=== PATIENT | female | born 1945 | race Caucasian/White ===

== ENCOUNTER 2025-04-28 13:50 | Emergency (ER) | payer OTHER ==
[~2025-04-28] VITALS: Ht 154.9 cm; Wt 77.9 kg
--- NOTE | 2025-04-28 14:26 | DVH ---
CHEST RADIOGRAPH Indication: palpitations Technique: Single frontal view of the chest was obtained Comparison: None FINDINGS: Lines and Tubes: None Lungs: No focal consolidation. Pleura: No effusion. No pneumothorax. Cardiomediastinal contours: Cardiomegaly Bones: No acute osseous abnormality. IMPRESSION: 1. Cardiomegaly 2. No infiltrates or effusions.
--- NOTE | 2025-04-28 14:35 | ED.PDOC ---
HPI Comments HPI: Past Medical history: Tremors, High Lipids Past Surgical history: Ectopic , Tonsillectomy Medications: Choline, Vitamine D, Atorvastatin, Primidone, Magnesium Social History: Denies smoking, ETOH, and drug use. Allergies: NKDA HPI: Poor Historian. 79-year-old female presents to emergency department for evaluation of 2-1/2 hours episode of palpitations that happened this morning when she woke up. Patient states having some associated mild chest discomfort and bilateral upper extremity numbness and tingling. The palpitation she has a resolved but the tingling in bilateral arms still present. REVIEW OF SYSTEMS: CONSTITUTIONAL: Denies acute: fever, diaphoresis, chills, HEAD: Denies acute: headache, photophobia Eyes: Denies acute: Double vision, vision loss, eye pain, eye discharge. EARS: Denies acute: tinnitus, hearing loss, ear discharge, ear pain, THROAT: Denies acute: sore throat, swelling, difficulty swallowing , pain with swa llowing, change in voice. NECK: Denies acute: neck pain, neck swelling, stiff neck. HEART: Denies acute : LUNGS: Denies acute: SOB, wheezing, cough, hemoptysis ABDOMEN: Denies acute: abdominal pain, Nausea, Vomiting, diarrhea, melena , hematemesis, hematochezia SKIN: Denies acute: rash, redness, lesions, itchiness. EXTREMITIES: Denies acute: calf pain, weakness, denies pain in extremity. Denies acute: Low back pain. Neuro: Denies acute: focal neurological deficit, motor or sensory focal neurological deficit, tremors, seizure like activity, confusion, dizziness, change in mental status, loss of bowel or bladder function, cauda equina like symptoms. : Denies acute: dysuria, hematuria, flank pain, increase in urinary frequency. PSYCH: Denies acute: hallucination, suicidal ideation, homicidal ideation. FEMALE: Denies acute: abnormal vaginal bleeding, foul odor, unusual discharge. PHYSICAL EXAM: General: ----no ----acute distress, awake and alert. Head: normocephalic, atraumatic. Neck: supple, trachea is midline, no swelling. Throat: Normal phonation. Eyes:, no erythema, no purulent discharge, no proptosis, no icterus. Heart: regular rate, regular rhythm, no significant murmur appreciated. Lungs: no apparent respiratory distress, Able to speak in full sentences. No wheezing, no rhonchi, no crackles. No stridors Clear to auscultation bilaterally. Abdomen: non tender to palpation, non distended, soft, no guarding, no rebound, + bowel sounds. Neuro: Awake, Alert, oriented to name, self, situation, follows commands. History of resting tremors GCS=15. Speech is normal. Skin: no petechia, no purpura, no cyanosis, non-pale, not jaundice. Lower extremities: --no - Pitting edema no deformity, no focal swelling, no calf TTP. Makes eye contact. moves all four extremities. Face: no apparent facial droop. Ambulating in the ED independently. ED COURSE: DISCLAIMER: This medical document was created using an electronic medical record system with voice recognition software and computerized dictation system. Although this document has been carefully reviewed, there might still be some phonetic and typographical errors. Occasional wrong-word or "sound-alike" substitutions may have occurred due to the inherent limitations of voice recognition software. These areas are purely typographical due to imperfections of the software programs and do not reflect any compromise in the patient's medical care. Please read the chart carefully and recognize, using context, where these substitutions have occurred. Chief Complaint: Palpitations Time Seen by MD: 14:30 Reviewed Notes: Nurses Notes, Medications, Allergies Allergies: Coded Allergies: NO KNOWN ALLERGIES (Unverified , 04/28/25) Home Meds Active Scripts Ciprofloxacin Hcl (Ciprofloxacin Hcl) 250 Mg Tab, 1 TAB PO BID, #10 TAB Prov:YAMILKA NDIAYE MD 04/28/25 Information Source: Patient Mode of Arrival: Ambulatory Severity: Moderate Timing: Hours Duration: Since onset Prehospital treatment: None Radiation: No Radiation Past Medical History PAST MEDICAL HISTORY: High Lipids Past Medical History (Other): Chronic Tremors Surgical History: Denies all surgeries INSTALLERS MECHANICAL History: No Pertinent INSTALLERS MECHANICAL History Family History Family History: Reviewed,noncontributory to illness, Unknown Social History Smoker: Non-Smoker Alcohol: Denies ETOH Use Drugs: Denies Drug Use EKG EKG : Pulse Rate (adult): 52 [place]: Normal Cardiac Rhythm: NSR Block: None Hypertrophy: None ST: Normal Comments 2nd EKG is: 49 Sinus Bradycardia Was a procedure done? Was a procedure done?: No CP Differential Dx Differential Diagnosis: A-fib, A-Flutter, Angina, Anxiety / Panic Attack, Digoxin Toxicity, Electrolyte Disorder, Heart Failure, Hyperthyroidism, Hyperventilation, Hypoxia, MAT, MO, PAC's, Pacemaker Malfunction, PSVT, Pulmonary Embolus, PVC's, Renal Failure, Sinus Tachycardia, Torsades De Pointes, Ventricular Dysrhythmia, V-Fib, V-Tach, WPW Differential Diagnosis: Other (Ddx include but not limitied to gastritis, musculoskeletal pain, radiculopathy, atypical chest pain, dissection, aneurysm, ACS, unstable angina, hiatal hernia, GERD, anxiety, costochondritis, PE, pneumothroax, neoplasm, cardiac ischemia, drug abuse, anemia.) X-Ray, Labs, Meds, VS Vital Signs Date Time Temp Pulse Resp B/P (MAP) Pulse Ox O2 Delivery O2 Flow Rate FiO2 04/28/25 23:24 45 18 96 Room Air* 0 21 04/28/25 23:22 45 18 150/59 (89) 98 04/28/25 20:38 97.4 49 14 148/78 (101) 97 97.4 04/28/25 17:03 47 04/28/25 17:02 47 04/28/25 16:36 97.6 52 20 137/64 (88) 96 97.6 04/28/25 14:53 52 04/28/25 14:51 49 04/28/25 13:59 52 04/28/25 13:54 97.7 58 18 128/66 97 97.7 Lab Test 04/28/25 20:19 04/28/25 17:26 04/28/25 15:01 04/28/25 14:16 Range/Units Urine Color Yellow Yellow Urine Clarity Turbid H Clear Urine pH 6.0 5.0-9.0 Urine Specific [place] 1.023 1.001-1.035 Urine Protein Trace H Negative Urine Ketones Negative Negative Urine Blood Negative Negative /uL Urine Nitrite Negative Negative Urine Bilirubin Negative Negative Urine Urobilinogen Normal Negative mg/dL Urine Leukocyte Esterase 2+ Negative /uL Urine RBC 3 0 - 4 /hpf Urine Microscopic WBC 14 H 0-5 /HPF Urine Squamous Epithelial Cells Mod <5 /hpf Urine Bacteria Few H None Seen /hpf Urine Mucus Moderate None Seen Urine Glucose Normal Normal mg/dL Troponin I High Sensitivity 77 *H 59 *H 55 *H </=34 ng/L White Blood Count 7.1 4.4-10.8 10^3/uL Red Blood Count 4.91 4.0-5.20 10^6/uL Hemoglobin 14.8 12.2-16.2 g/dL Hematocrit 43.7 36.0-46.0 % Mean Corpuscular Volume 89.0 80.0-100.0 fL Mean Corpuscular Hemoglobin 30.1 28.0-32.0 pg Mean Corpuscular Hemoglobin Concent 33.8 32.0-36.0 g/dL Red Cell Distribution Width 13.7 11.8-14.3 % Platelet Count 167 140-450 10^3/uL Mean Platelet Volume 9.8 6.9-10.8 fL Neutrophils (%) (Auto) 73.3 37.0-80.0 % Lymphocytes (%) (Auto) 15.5 10.0-50.0 % Monocytes (%) (Auto) 10.1 0.0-12.0 % Eosinophils (%) (Auto) 0.6 0.0-7.0 % Basophils (%) (Auto) 0.5 0.0-2.0 % Neutrophils # (Auto) 5.2 1.6-8.6 10 ^3/uL Lymphocytes # (Auto) 1.1 0.4-5.4 10 ^3/uL Monocytes # (Auto) 0.7 0-1.3 10 ^3/uL Eosinophils # (Auto) 0 0-0.8 10 ^3/uL Basophils # (Auto) 0 0-0.2 10 ^3/uL Nucleated Red Blood Cells 0.0 % Sodium Level 143 136-145 mmol/L Potassium Level 4.0 3.5-5.1 mmol/L Chloride Level 107 98-107 mmol/L Carbon Dioxide Level 28 20-31 mmol/L Anion Gap 8 5-15 Blood Urea Nitrogen 20 9-23 mg/dL Creatinine 0.88 0.550-1.02 mg/dL Glomerular Filtration Rate Calc 67 >90 mL/min BUN/Creatinine Ratio 22.7 H 10.0-20.0 Serum Glucose 124 H 74-106 mg/dL Calcium Level 9.5 8.7-10.4 mg/dL Magnesium Level 2.1 1.6-2.6 mg/dL B-Type Natriuretic Peptide 456.55 0-100 pg/mL [facility] [id number] [place] [id number] Ph: [phone] DIAGNOSTIC IMAGING Diagnostic Imaging Report : [id number] Signed PATIENT: KOREY BUI ACCT: [id number] UNIT: [id number] : 1945 LOC: ER ROOM / BED: / AGE / SEX: 79 / F ADM STATUS: REG ER SERVICE 57 ORDERING PHYSICIAN: TAMIKA SAVAGE MD PROCEDURE(s): CXRP - CHEST PORTABLE REASON: palpitations ORDER NUMBER(s): [id number], ACCESSION NUMBER(s): [id number] CHEST RADIOGRAPH Indication: palpitations Technique: Single frontal view of the chest was obtained Comparison: None FINDINGS: Lines and Tubes: None Lungs: No focal consolidation. Pleura: No effusion. No pneumothorax. Cardiomediastinal contours: Cardiomegaly Bones: No acute osseous abnormality. IMPRESSION: 1. Cardiomegaly 2. No infiltrates or effusions. ATED BY: GUILHERME MORROW Jr., DO DICTATED DATE/TIME: 04/28/251423 SIGNED BY: GUILHERME MORROW Jr., SIGNED DATE/TIME: 04/28/251423 CC: Time of 1ST Reevaluation: 15:00 Reevaluation 1ST: Unchanged Time of 2ND Reevaluation: 19:35 (The case was discussed with the admitting team (HPI, physical exam, labs and diagnostic tests that were available at the time of disposition, ED course, treatment plan) on the phone. They agreed to admit the patient to their service and assume care of this patient from this point forward. --- Rubén) Patient Education/Counseling: Diagnosis, Treatment Family Education/Counseling: No Family Present Comments MDM: patient presented with the above HPI.--palpitation/chest pain----workup was initiated. patient was found with the above mentioned diagnosis. the following medications were ordered: please refer to order lists of meds and tests obtained by myself Dr. Garcia. Patient ED course and VS have been stabilized. Patient has been reassessed in the ED and remained in a stable condition. Pertinent incidental findings were discussed with the patient and/or family. Patient/family voices understanding and is agreeable with plan. Patient has been observed in the ED adequate length of time to insure improvement/stability. Escalation of care considered: Consideration of escalation to observation or admission Patient was given aspirin Patient was ADMITTED to the medicine team for further evaluation and treatment of their presentation. All the reports of any imaging studies that were ordered by myself were reviewed by myself. SEPSIS Sepsis Screen Date sepsis recognized/suspect: Apr 28, 2025 Time Sepsis recognized/suspect: 1350 Recent Procedure: No On Antibiotic Therapy: No Respiratory Rate >20: No Heart Rate >90: No Temp<36 C (96.8 F) or >38.3 C: No SBP <90 or MAP <65 mmHG: No New Acute Mental Status Change: No Is the patient on CPAP, BIPAP,: No Physician Orders Chest Portable (04/28/25 13:58) Communication Order (04/28/25 20:00) Discharge (04/28/25 21:41) Communication Order (04/28/25 21:42) Vital Signs Date Time Temp Pulse Resp B/P (MAP) Pulse Ox O2 Delivery O2 Flow Rate FiO2 04/28/25 23:24 45 18 96 Room Air* 0 21 04/28/25 23:22 45 18 150/59 (89) 98 04/28/25 20:38 97.4 49 14 148/78 (101) 97 97.4 04/28/25 17:03 47 04/28/25 17:02 47 04/28/25 16:36 97.6 52 20 137/64 (88) 96 97.6 04/28/25 14:53 52 04/28/25 14:51 49 04/28/25 13:59 52 04/28/25 13:54 97.7 58 18 128/66 97 97.7 Laboratory Tests Test 04/28/25 14:16 White Blood Count 7.1 10^3/uL (4.4-10.8) Departure 1 Departure Time of Disposition: 15:19 Impression: Primary Impression: Palpitations Additional Impressions: Chest pain Elevated troponin UTI (urinary tract infection) Disposition: ADMITTED INPATIENT Admit to: Tele Condition: Guarded e-Prescriptions Ciprofloxacin Hcl (Ciprofloxacin Hcl) 250 Mg Tab 1 TAB PO BID, #10 TAB Prov: AYMILKA NDIAYE MD 04/28/25 Discharged With: Self Critical Care Note Critical Care Time?: Yes (45 min-critical care time only) Heart Score Heart Score: Heart Score Response (Comments) Value History Moderate Suspicious 1 EKG Normal 0 Age >65 2 Risk Factors 1 or 2 risk factors 1 Troponin 1-2 x's Normal limit 1 Total 5 I personally scribed for LAWANDA GARCIA DO ([email or web address]) on 04/28/25 at 14:35. Electronically submitted by Jairon Lang ([email or web address]). I personally scribed for LAWANDA GARCIA DO ([email or web address]) on 04/28/25 at 14:53. Electronically submitted by Jairon Lang ([email or web address]). I personally scribed for LAWANDA GARCIA DO ([email or web address]) on 04/28/25 at 15:05. Electronically submitted by Jairon Lang ([email or web address]). LAWANDA GARCIA DO Apr 28, 2025 14:35
[2025-04-28 14:37] LABS: Hematocrit 43.7 % (36.0-46.0); Hemoglobin 14.8 g/dL (12.2-16.2); Mean Corpuscular Hemoglobin 30.1 pg (28.0-32.0); Mean Corpuscular Volume 89.0 fL (80.0-100.0); Nucleated Red Blood Cells % 0.0 %
[2025-04-28 14:45] LABS: Chloride 107 mmol/L (98-107); Potassium 4.0 mmol/L (3.5-5.1); Sodium 143 mmol/L (136-145)
[2025-04-28 14:46] LABS: Anion Gap 8 (5-15); Calcium 9.5 mg/dL (8.7-10.4); Carbon Dioxide 28 mmol/L (20-31)
[2025-04-28 14:51] LABS: BUN/Creatinine Ratio 22.7 (10.0-20.0); Blood Urea Nitrogen 20 mg/dL (9-23); Glucose 124 mg/dL (74-106)
--- NOTE | 2025-04-28 14:51 | ECG ---
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
--- NOTE | 2025-04-28 14:51 | ECG ---
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
[2025-04-28] MEDS: ASPirin-EC 325mg tab PO ONE (15:56)
--- NOTE | 2025-04-28 18:40 | ECG ---
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
[2025-04-28 20:38] VITALS: TEMP 97.4
[2025-04-28 20:58] LABS: Urine Protein, UAD TRACE (Negative)
--- NOTE | 2025-04-28 21:31 | DVHINCON2 ---
Date of service: Apr 28, 2025 Referring Physician Yaron Reason for Consultation Elevated troponin History of Present Illness This is a 79-year-old female with a PMH of tremors and HLD who presents to emergency department for a complaint of a 2-1/2 hour episode of heart palpitations that happened this morning when she woke up. Patient states having some associated mild chest discomfort and bilateral upper extremity numbness and tingling. The heart palpitations have since resolved but the tingling in bilateral arms are still present. CBC and CMP are unremarkable. TROP 55 > 59 >77. EKG showed sinus bradycardia at 50. Chest x-ray shows cardiomegaly. Patient was admitted to the hospital. I am asked to consult on this patient. Allergies: Coded Allergies: NO KNOWN ALLERGIES (Unverified , 04/28/25) Review of Systems CONSTITUTIONAL: Denies acute: fever, diaphoresis, chills, HEAD: Denies acute: headache, photophobia Eyes: Denies acute: Double vision, vision loss, eye pain, eye discharge. EARS: Denies acute: tinnitus, hearing loss, ear discharge, ear pain, THROAT: Denies acute: sore throat, swelling, difficulty swallowing , pain with swallowing, change in voice. NECK: Denies acute: neck pain, neck swelling, stiff neck. HEART: Denies acute : LUNGS: Denies acute: SOB, wheezing, cough, hemoptysis ABDOMEN: Denies acute: abdominal pain, Nausea, Vomiting, diarrhea, melena , hematemesis, hematochezia SKIN: Denies acute: rash, redness, lesions, itchiness. EXTREMITIES: Denies acute: calf pain, weakness, denies pain in extremity. Denies acute: Low back pain. Neuro: Denies acute: focal neurological deficit, motor or sensory focal neurological deficit, tremors, seizure like activity, confusion, dizziness, change in mental status, loss of bowel or bladder function, cauda equina like symptoms. : Denies acute: dysuria, hematuria, flank pain, increase in urinary frequency. PSYCH: Denies acute: hallucination, suicidal ideation, homicidal ideation. FEMALE: Denies acute: abnormal vaginal bleeding, foul odor, unusual discharge. Vital Signs Vital Signs Date Time Temp Pulse Resp B/P (MAP) Pulse Ox O2 Delivery O2 Flow Rate FiO2 04/28/25 17:03 47 04/28/25 16:36 97.6 20 137/64 (88) 96 97.6 Physical Exam GENERAL: Alert and oriented x 3. No acute distress. EYES: PERRL, EOMI. Anicteric. HENT: Moist mucous membranes. LUNGS: Clear to auscultation bilaterally. CARDIOVASCULAR: Regular rate and rhythm. ABDOMEN: Soft, nontender and nondistended. EXTREMITIES: No edema. NEUROLOGIC: No focal neurological deficits. SKIN: Warm, dry. Labs/Diagnostic Data Labs Test 04/28/25 17:26 04/28/25 14:16 Range/Units Troponin I High Sensitivity 77 *H </=34 ng/L White Blood Count 7.1 4.4-10.8 10^3/uL Red Blood Count 4.91 4.0-5.20 10^6/uL Hemoglobin 14.8 12.2-16.2 g/dL Hematocrit 43.7 36.0-46.0 % Mean Corpuscular Volume 89.0 80.0-100.0 fL Mean Corpuscular Hemoglobin 30.1 28.0-32.0 pg Mean Corpuscular Hemoglobin Concent 33.8 32.0-36.0 g/dL Red Cell Distribution Width 13.7 11.8-14.3 % Platelet Count 167 140-450 10^3/uL Mean Platelet Volume 9.8 6.9-10.8 fL Neutrophils (%) (Auto) 73.3 37.0-80.0 % Lymphocytes (%) (Auto) 15.5 10.0-50.0 % Monocytes (%) (Auto) 10.1 0.0-12.0 % Eosinophils (%) (Auto) 0.6 0.0-7.0 % Basophils (%) (Auto) 0.5 0.0-2.0 % Neutrophils # (Auto) 5.2 1.6-8.6 10 ^3/uL Lymphocytes # (Auto) 1.1 0.4-5.4 10 ^3/uL Monocytes # (Auto) 0.7 0-1.3 10 ^3/uL Eosinophils # (Auto) 0 0-0.8 10 ^3/uL Basophils # (Auto) 0 0-0.2 10 ^3/uL Nucleated Red Blood Cells 0.0 % Sodium Level 143 136-145 mmol/L Potassium Level 4.0 3.5-5.1 mmol/L Chloride Level 107 98-107 mmol/L Carbon Dioxide Level 28 20-31 mmol/L Anion Gap 8 5-15 Blood Urea Nitrogen 20 9-23 mg/dL Creatinine 0.88 0.550-1.02 mg/dL Glomerular Filtration Rate Calc 67 >90 mL/min BUN/Creatinine Ratio 22.7 H 10.0-20.0 Serum Glucose 124 H 74-106 mg/dL Calcium Level 9.5 8.7-10.4 mg/dL Magnesium Level 2.1 1.6-2.6 mg/dL B-Type Natriuretic Peptide 456.55 0-100 pg/mL Assessment Sinus bradycardia. Palpitations. Elevated troponin. HLD. Plan/Recommendation I agree with your ongoing assessment and care of plan. Aspirin. IVFs. Additional plan as per the hospital course. A total of 45 minutes was spent reviewing the patient record, examining the patient, making a diagnostic and therapeutic plan, discussing this plan with medical personnel, following up on diagnostic studies and following the patient for clinical stability excluding any and all procedures. At least 50% of this time was spent in direct, [id number] contact. Plan discussed with: Patient JESÚS ROCHA MD Apr 28, 2025 19:55
[2025-04-28] MEDS ORDERED: CIPR250T3 PO (21:45)
[2025-04-28 23:22] VITALS: BP 150/59
[2025-04-28 23:24] VITALS: PULSE 45; RESP 18; O2SAT 96
--- NOTE | 2025-04-30 17:33 | DVHINCON2 ---
DATE OF CONSULTATION: 04/28/2025 This is a late note entry for 04/28/2025. CHIEF COMPLAINT: Coming in for palpitations. HISTORY OF PRESENT ILLNESS: This is a 79-year-old female with a significant past medical history for essential tremors and hyperlipidemia, who woke up early this morning at 5:00 a.m. due to palpitations. The patient apparently was asleep when she woke up with palpitations. She says that she got up to go to the bathroom and felt a little bit of shortness of breath on exertion. When came back to the bed and rested, her palpitation resolved within 2.5 hours. The patient after that started feeling as though she was having numbness and tingling in bilateral hands and in her ears and jaw region, which also took about 2.5 hours before it resolved. The patient says she had not had any nausea, vomiting, or diaphoresis symptoms or any symptoms, but during her palpitations, she did feel some chest tightness. The patient otherwise also mentioned that she had some headache during that time during the episode of palpitations. She said she had 1 episode like this about a year ago that lasted for less than an hour but never recurred. She has never seen anybody for palpitations before or had any cardiac workup in the past. She denies any recent sicknesses, any fevers, chills, diarrhea, constipation, bloody stools, any cough, phlegm, urinary frequency, urgency, or burning sensation symptoms. The patient was picked up by EMS and was found to be bradycardic. PAST MEDICAL HISTORY: Essential tremors, hyperlipidemia. PAST SURGICAL HISTORY: Has had 1 ectopic surgery, appendectomy, and tonsillectomy. SOCIAL HISTORY: No tobacco, no alcohol, no illicit drugs. The patient does not use caffeine products or energy drinks either. MEDICATIONS AT HOME: Include primidone and atorvastatin. MEDICATION ALLERGIES: The patient has no known drug allergies. REVIEW OF SYSTEMS: A 10-point review of systems was covered with the patient and was negative with exception to what was present in the history of present illness. PHYSICAL EXAMINATION: VITAL SIGNS: Temperature 97.7, pulse rate 58, respiratory rate 18, blood pressure 120/66, pulse ox about 97% on room air. GENERAL: She is alert and oriented x4, in no acute distress female sitting up in a bed. HEENT: Normocephalic, atraumatic. Extraocular muscles were intact. Pupils were equally round and reactive to light and accommodation. Mucous membranes were moist. CARDIOVASCULAR: S1 and S2 positive, bradycardic rhythm. No rubs, gallops, or murmurs. LUNGS: Clear to auscultation bilaterally. No wheezing, rhonchi or rales. ABDOMEN: Soft, nontender, and nondistended. Positive bowel sounds. No guarding or rebound. EXTREMITIES: No lower extremity edema, clubbing, or cyanosis. NEUROLOGIC: No focal deficits. Cranial nerve testing 2-12 overall seems to be intact. LABORATORY WORKUP: Showed a white count of 7.1, H and H of 14.8 and 43.7, platelet count of 167,000. Sodium of 143, potassium 4.0, chloride 107, carbon dioxide of 28, anion gap of 8, BUN of 20, creatinine 0.88, glucose of 124. Troponins of 55, 59, and 77. Urinalysis showed trace protein, negative nitrites, 2+ leukocyte esterase, and 14 wbc's. BNP was 456. IMAGING: Chest x-ray shows cardiomegaly. No infiltrates or effusions. EKG showed sinus bradycardia, ventricular rate 47, isolated T-wave inversion in V1. No ST depressions or elevations. DIAGNOSES: * Sinus bradycardia. * Palpitations. * Nonspecific elevated troponins. * Hyperlipidemia. PLAN: The patient was seen in the Emergency Room. Full assessment was completed with the patient. The patient currently has been chest pain and palpitation free. The patient seems to have had an episode of palpitations earlier in the morning, which resolved in the morning and presented here while she was asymptomatic. Patient EKG was found to have sinus bradycardia within the high 40s to low 50s. The patient was also found to have some minimal elevated cardiac enzymes. Given this concern, Cardiology consultation with Dr. Leroy Nguyen was requested. The patient was seen by Cardiology and was cleared from a cardiac standpoint for close followup within the next 48 hours in his office for further cardiac risk stratification. The patient's medication lists have been reviewed. She is not taking any form of calcium channel blockers or beta blockers. She does just take medications with primidone for essential tremors and atorvastatin for hyperlipidemia. The patient also with her bradycardic heart rates did show some signs of elevated blood pressures. At this time, I will not treat he blood pressure as she typically does not have a history of hypertension. I will have her follow up with Cardiology and to be treated at that time if she continues to have elevated blood pressures. The patient's Cardiology followup will be arranged within the next again 1-2 days. The patient will also have a PCP followup within the next 5-7 days. The patient was also found to have an underlying urinary tract infection and was given ciprofloxacin 250 mg p.o. b.i.d. for 5 days. The patient is to return to the Emergency Room in case of any recurrences of palpitations, development of chest pain, shortness of breath, nausea, vomiting, dizziness, or any other concerning signs and/or symptoms. The patient's followup will be arranged by [facility] and will be contacted with her follow-up appointments. Boogie Aguilar MD LM/CHRISTIAN TID: [id number] RECEIPT: [id number]
== END 2025-04-28 23:33 | disposition home or self-care (01) ==
LOC: ER 13:50
DX: R00.2 Palpitations (principal); R07.89 Other chest pain; N39.0 Urinary tract infection, site not specified; R79.89 Other specified abnormal findings of blood chemistry; E78.5 Hyperlipidemia, unspecified; Z90.89 Acquired absence of other organs; Z90.49 Acquired absence of other specified parts of digestive tract; Z79.899 Other long term (current) drug therapy
CPT/HCPCS: 36415; 71045; 80048; 81001; 83735; 83880; 84484; 85025; 93005; 96365; 99285; J0696